=== PATIENT | male | born 1985 ===

== ENCOUNTER 2018-05-26 05:19 | Emergency (ER) | payer SELFPAY ==
[2018-05-26] MEDS ORDERED: PROPARACAINE/FLUORESCEIN SOD 100 DROP/5 ML BOTTLE ONE (05:39)
[2018-05-26] MEDS ORDERED: Erythromycin 0.5% Ophth Oint 1 APPLIC/3.5 G OS STA (05:40)
[2018-05-26] MEDS ORDERED: Erythromycin 0.5% Ophth Oint 1 APPLIC/3.5 G ONE (05:45)
--- NOTE | 2018-05-26 05:51 | C.PDOC ---
History Of Present Illness 32-year-old male presents to the ED for evaluation of left eye irritation s/p exposure to clorox cleaning solution. Patient states while at work, a drop of clorox fell from above into his left eye. He immediately flushed the eye. Patient is now complaining of redness and burning to the left eye. He also reports slight blurred vision on the left improves with blinking. Upon arrival to the ED, patient again irrigated the eye at the eye wash station. He denies any contact lens use. Time Seen by Provider: 05/26/18 05:24 Chief Complaint (Nursing): Eye Problem History Per: Patient History/Exam Limitations: no limitations Onset/Duration Of Symptoms: Mins Current Symptoms Are (Timing): Still Present Quality: "Pain" Past Medical History Reviewed: Historical Data, Nursing Documentation, Vital Signs Vital Signs: Last Vital Signs Temp 98.1 F 05/26/18 05:25 Pulse 82 05/26/18 05:25 Resp 20 05/26/18 05:25 BP 168/96 H 05/26/18 05:25 Pulse Ox 96 05/26/18 05:25 - Medical History PMH: No Chronic Diseases Surgical History: No Surg Hx Family History: States: No Known Family Hx - Social History Hx Alcohol Use: Yes Hx Substance Use: Yes - Immunization History Hx Tetanus Toxoid Vaccination: No Hx Influenza Vaccination: No Hx Pneumococcal Vaccination: No Review Of Systems Constitutional: Negative for: Fever Eyes: Positive for: Pain (left), Vision Change, Redness (left) Neurological: Negative for: Weakness, Numbness, Headache, Dizziness Physical Exam - Physical Exam Appears: Non-toxic, No Acute Distress Skin: Warm, Dry, No Rash Head: Atraumatic, Normacephalic Eye(s): bilateral: PERRL, EOMI, left: Other (Diffuse conjunctival injection to the left eye, no discharge, no cloudiness or haziness to cornea, pupil WNL) Oral Mucosa: Moist Neck: Normal ROM Chest: Symmetrical Extremity: Bilateral: Atraumatic, Normal Color And Temperature Neurological/Psych: Oriented x3, Normal Speech ED Course And Treatment O2 Sat by Pulse Oximetry: 96 (on room air) Pulse Ox Interpretation: Normal Medical Decision Making Medical Decision Making: Impression: Left eye injury Plan: * visual acuity performed * erythromycin OS applied Visual acuity was 20/20. There was no litmus paper available in the hospital pharmacy to check pH. Patient irrigate eye again in the ED. Topical antibiotic ointment applied. Patient was given verbal and written instructions to follow up with optho in 24 hours or return to ED Disposition Counseled Patient/Family Regarding: Diagnosis, Need For Followup, Rx Given - Disposition Referrals: Amanuel Poon MD [Staff Provider] - Disposition: HOME/ ROUTINE Disposition Time: 05:57 Condition: GOOD Additional Instructions: Continue to irrigate eye at home every hour until redness and pain resolve. Please follow up with auto clutch specialist in 24 hours Take pain medicine as needed Prescriptions: Erythromycin 0.5% [Erythromycin] 1 applic OS BID #1 tube Instructions: Conjunctivitis (Noninfectious Pinkeye) (DC) Forms: [employer] (Welsh), Work Excuse - POA Present On Arrival: None - Clinical Impression Clinical Impression: Chemical conjunctivitis - PA / [employer] / Resident Statement MD/DO has reviewed & agrees with the documentation as recorded. - Scribe Statement The provider has reviewed the documentation as recorded by the Scribe (Estrella Talamantes) All medical record entries made by the Scribe were at my direction and personally dictated by me. I have reviewed the chart and agree that the record accurately reflects my personal performance of the history, physical exam, medical decision making, and the department course for this patient. I have also personally directed, reviewed, and agree with the discharge instructions and disposition.
[2018-05-26 06:06] VITALS: BP 162/89; PULSE 77; RESP 14; TEMP 98.4; O2SAT 97
== END 2018-05-26 06:06 | disposition home or self-care (01) ==
LOC: C.ER 05:19
DX: H10.212 Acute toxic conjunctivitis, left eye (principal)

== ENCOUNTER 2018-06-06 22:37 | Emergency (ER) | payer OTHER ==
--- NOTE | 2018-06-06 23:41 | C.PDOC ---
History Of Present Illness Patient presents to the ER after he was at home mixing bleach with cleaning products, produced fumes which he inhaled and felt like he had difficulty breathing. He is currently speaking in complete sentences. Denies chest pain. Time Seen by Provider: 06/06/18 23:40 Chief Complaint (Nursing): Shortness Of Breath History Per: Patient History/Exam Limitations: no limitations Onset/Duration Of Symptoms: Hrs Current Symptoms Are (Timing): Still Present Initiating Event: Other (Exposure to fumes from cleaning products) Current Respiratory Medications: See Home Med List Severity: Moderate Pain Scale Rating Of: 4 Associated Symptoms: denies: Chest Pain Recent travel outside of the [place]: No Past Medical History Reviewed: Historical Data, Nursing Documentation, Vital Signs Vital Signs: Last Vital Signs Temp 97.9 F 06/06/18 22:43 Pulse 72 06/06/18 22:43 Resp 17 06/06/18 22:55 BP 161/131 H 06/06/18 22:43 Pulse Ox 97 06/06/18 22:55 Family History: States: No Known Family Hx - Social History Hx Alcohol Use: Yes Hx Substance Use: Yes - Immunization History Hx Tetanus Toxoid Vaccination: No Hx Influenza Vaccination: No Hx Pneumococcal Vaccination: No Review Of Systems Constitutional: Negative for: Fever, Chills Cardiovascular: Negative for: Chest Pain, Palpitations Respiratory: Positive for: Other (Difficulty breathing) Gastrointestinal: Negative for: Nausea, Vomiting Neurological: Negative for: Weakness, Numbness Physical Exam - Physical Exam Appears: Non-toxic Skin: Warm, Dry Head: Normacephalic Oral Mucosa: Moist Throat: No Erythema, No Exudate Neck: Trachea Midline, Supple Chest: Symmetrical, No Tenderness Cardiovascular: Rhythm Regular Respiratory: No Rales, No Rhonchi, Wheezing (Scattered) Gastrointestinal/Abdominal: Soft, No Tenderness Neurological/Psych: Oriented x3 ED Course And Treatment O2 Sat by Pulse Oximetry: 97 (room air) Pulse Ox Interpretation: Normal Progress Note: Duoneb nebulizer administered. Reevaluation Time: 03:38 Reassessment Condition: Improved Disposition Counseled Patient/Family Regarding: Studies Performed, Diagnosis, Need For Followup - Disposition Referrals: [facility] [Outside] Disposition: HOME/ ROUTINE Disposition Time: 23:41 Condition: FAIR Prescriptions: Albuterol HFA [Ventolin HFA 90 mcg/actuation (8 g)] 2 puff IH [id number] #1 puff predniSONE [Prednisone] 20 mg PO DAILY #5 tab Instructions: Asthma, Adult (DC) Forms: [employer] (Maldivian) - Clinical Impression Clinical Impression: Reactive airway disease - Scribe Statement The provider has reviewed the documentation as recorded by the Scribe Valentín Shirley All medical record entries made by the Scribe were at my direction and personally dictated by me. I have reviewed the chart and agree that the record accurately reflects my personal performance of the history, physical exam, medical decision making, and the department course for this patient. I have also personally directed, reviewed, and agree with the discharge instructions and disposition.
[2018-06-06] MEDS ORDERED: Albuterol-Ipratrop 3 mg / 0.5 (3 ml) UD ONE (23:46)
[2018-06-06] MEDS: Albuterol-Ipratrop 3 mg / 0.5 (3 ml) UD IH SCH (23:58)
[2018-06-07] MEDS: Albuterol-Ipratrop 3 mg / 0.5 (3 ml) UD IH SCH (00:15)
[2018-06-07 00:32] VITALS: TEMP 97.8
[2018-06-07 03:37] VITALS: BP 145/82; PULSE 78; RESP 18
[2018-06-07 03:40] VITALS: O2SAT 97
== END 2018-06-07 03:50 | disposition home or self-care (01) ==
LOC: SUPCPDRO 22:37 → C.ER 22:37
DX: J45.909 Unspecified asthma, uncomplicated (principal)